=== PATIENT | male | born 1970 | race Asian ===

== ENCOUNTER 2019-11-03 17:24 | Emergency (ER) | payer SELFPAY ==
[~2019-11-03] VITALS: Ht 160 cm; Wt 68.0 kg
[2019-11-03 17:31] VITALS: BP 162/95
--- NOTE | 2019-11-03 18:28 | NUR ---
Patient discharged with v/s stable. Written and verbal after care instructions given and explained. Patient alert, oriented and verbalized understanding of instructions. Ambulatory with steady gait. All questions addressed prior to discharge. ID band removed. Patient advised to follow up with PMD. Rx of Raltegravir, Tivicay or Truvada given. Patient educated on indication of medication including possible reaction and side effects. Opportunity to ask questions provided and answered. No nursing care provided in our ER.
== END 2019-11-03 18:28 | disposition home or self-care (01) ==
LOC: MED 17:24
DX: K76.89 Other specified diseases of liver (principal); Z20.6 Contact with and (suspected) exposure to human immunodeficiency virus [HIV]; Z02.89 Encounter for other administrative examinations
CPT/HCPCS: 99283